=== PATIENT | female | born 1950 | race Caucasian/White ===

== ENCOUNTER → 2020-11-23 | Outpatient (CLI) | payer MEDICARE, OTHER | LOC: EXRD 11-17 13:30 | DX: E11.51 Type 2 diabetes mellitus with diabetic peripheral angiopathy without gangrene (principal) | CPT/HCPCS: 93925 ==

== ENCOUNTER 2022-01-06 00:32 | Emergency (ER) | payer MEDICARE, OTHER ==
[2022-01-06 01:57] LABS: HEMOGLOBIN 14.5 gm/dl (12.3-15.3); RED BLOOD COUNT 4.87 M/UL (4.00-5.10); WHITE BLOOD COUNT 16.3 K/UL (4.5-11.0)
[2022-01-06 02:17] LABS: BUN/CREATININE RATIO 18 (0-10)
[2022-01-06] MEDS ORDERED: ONDANSETRON ODT4 MG SL (07:16)
[2022-01-06] MEDS ORDERED: CEPHALEXIN500 M1 PO (07:16)
== END 2022-01-06 08:04 | disposition home or self-care (01) ==
LOC: ER1 00:32
PROVIDERS: Physician Assistant
DX: N39.0 Urinary tract infection, site not specified (principal); K52.9 Noninfective gastroenteritis and colitis, unspecified; R07.89 Other chest pain; N94.89 Other specified conditions associated with female genital organs and menstrual cycle; K21.9 Gastro-esophageal reflux disease without esophagitis; E11.9 Type 2 diabetes mellitus without complications; E78.5 Hyperlipidemia, unspecified; I10 Essential (primary) hypertension; Z85.828 Personal history of other malignant neoplasm of skin
CPT/HCPCS: 80053; 81001; 82550; 82553; 83690; 84484; 85025; 85379; 93005; 96374; 96375; 96376; 99284; C9113; J2270; J2405; Q9967

== ENCOUNTER → 2022-04-06 | Outpatient (CLI) | payer MEDICARE, OTHER ==
[~2022-04-06] MED LIST: CEPHALEXIN500 M1 PO; ONDANSETRON ODT4 MG SL
== END ==
LOC: US 13:56
DX: N85.9 Noninflammatory disorder of uterus, unspecified (principal); R93.5 Abnormal findings on diagnostic imaging of other abdominal regions, including retroperitoneum; Z90.721 Acquired absence of ovaries, unilateral
CPT/HCPCS: 76856